=== PATIENT | female | born 1990 | race Caucasian/White ===

== ENCOUNTER → 2019-03-23 11:02 | Outpatient (CLI) | payer OTHER, MEDICAID, SELFPAY ==
--- NOTE | 2019-03-23 11:04 | DI.RAD.S_ITS ---
PROCEDURE: XR WRIST RT MIN 3V INDICATIONS: Pain in hand/wrist after fall TECHNIQUE: 4 views of the wrist were acquired. COMPARISON: None. FINDINGS: Bones: No fractures or dislocations. No suspicious bony lesions. Scaphoid view: Scapholunate interval is maintained. No acute fracture is noted in the scaphoid. Soft tissues: No suspicious soft tissue calcifications. IMPRESSION: Right wrist without acute fracture or dislocation. If there is persistent clinical concern for a radiographically occult fracture given mechanism of injury, consider repeat imaging in 10-14 days with immobilization as clinically indicated. Dictated by: Kaiden Lopez M.D. on 03/23/2019 at 12:01 Approved by: Kaiden Lopez M.D. on 03/23/2019 at 12:05
--- NOTE | 2019-03-23 11:04 | DI.RAD.S_ITS ---
PROCEDURE: XR HAND RT MIN 3V INDICATIONS: Pain in hand/wrist after fall TECHNIQUE: 3 views of the hand(s) acquired. COMPARISON: None. FINDINGS: Bones: Subtle cortical irregularity without displacement involving the radial side at the base of the right fifth finger distal phalanx without significant overlying soft tissue swelling. This may be related to overlapping structures. However, this appears more prominent than the other visualized phalanges. No other fractures or dislocations. Carpal bones are normally aligned. No suspicious bony lesions. Soft tissues: No suspicious soft tissue calcifications. IMPRESSION: Subtle cortical irregularity involving the radial side of the base of the right fifth finger distal phalanx. No significant overlying soft tissue swelling. This may represent a nondisplaced fracture if there is focal tenderness in this region. Otherwise, no acute fracture is identified in the right hand. Dictated by: Kaiden Lopez M.D. on 03/23/2019 at 12:05 Approved by: Kaiden Lopez M.D. on 03/23/2019 at 12:09
== END ==
PROVIDERS: PCP Family Medicine; Visit Provider Physician Assistant
DX: M79.641 Pain in right hand (principal); M25.531 Pain in right wrist
CPT/HCPCS: 73110; 73130

== ENCOUNTER 2019-12-25 10:37 | Emergency (ER) | payer OTHER, MEDICAID, SELFPAY ==
[2019-12-25 10:54] VITALS: BP 126/76; PULSE 76; RESP 16; TEMP 36.3; O2SAT 100; BMI 35.2
--- NOTE | 2019-12-25 12:47 | DI.RAD.S_ITS ---
PROCEDURE: XR THORACIC SPINE 3V INDICATIONS: non-traumatic neckand upper back pain for 4 weeks TECHNIQUE: 3 views of the thoracic spine were acquired. COMPARISON: None. FINDINGS: Bones: On the lateral views, the cervicothoracic junction is adequately visualized and the alignment through this region is within normal limits. The vertebral body heights are within normal limits throughout the thoracic spine without evidence to suggest acute compression fracture. The bone mineralization is within normal limits. No significant degenerative changes of the thoracic spine are evident. Soft tissues: The imaged overlying soft tissues of the chest are within normal limits. IMPRESSION: Unremarkable thoracic spine radiographs. No fractures. Dictated by: Fantasma Reyes M.D. on 12/25/2019 at 12:29 Approved by: Fantasma Reyes M.D. on 12/25/2019 at 12:29
--- NOTE | 2019-12-25 12:47 | DI.RAD.S_ITS ---
PROCEDURE: XR CERVICAL SPINE 2V OR 3V INDICATIONS: non-traumatic neckand upper back pain for 4 weeks TECHNIQUE: 3 view(s) of the cervical spine were acquired. COMPARISON: None. FINDINGS: Bones: On the lateral view, the cervicothoracic junction is adequately visualized and the alignment through this region is within normal limits. The vertebral body heights and prevertebral soft tissues are within normal limits throughout the cervical spine without evidence to suggest acute compression fracture. The bone mineralization is within normal limits. Straightening of the normal cervical lordosis is present. No significant degenerative changes of the cervical spine are identified. Soft tissues: No prevertebral soft tissue swelling. The imaged overlying soft tissues of the neck are within normal limits. IMPRESSION: 1. No displaced fractures. 2. Cervical straightening is suggestive of muscle spasm. Please correlate clinically. Dictated by: Fantasma Reyes M.D. on 12/25/2019 at 12:27 Approved by: Fantasma Reyes M.D. on 12/25/2019 at 12:28
[2019-12-25] MEDS: CYCLOBENZAPRINE 10 MG TABLET PO (13:21)
[2019-12-25] MEDS: LIDOCAINE PATCH 1 EACH ADH..PATCH 2 EACH TOP (13:21)
[2019-12-25] MEDS: ACETAMINOPHEN 325 MG TABLET 650 MG PO (13:22)
[2019-12-25] MEDS: KETOROLAC 60 MG/2 ML VIAL 30 MG IM (13:23)
--- NOTE | 2019-12-26 02:13 | ED_ITS ---
HPI - Back Pain/Injury <DOMINIC ManciniP - Last Filed: 12/26/19 02:25> General Chief Complaint: Back Pain/Injury Stated Complaint: upper back/neck pain Time Seen by Provider: 12/25/19 11:11 Source: patient Mode of arrival: Ambulatory Limitations: no limitations History of Present Illness HPI Narrative: This is a 29-year-old female, former smoker, who presents to ED with significant other with chief complain of posterior neck and upper back pain for 4 weeks. Patient denies injury or trauma prior to her symptoms. Patient reports discomfort is causing her to have headache. Patient states the discomfort feels as throbbing and feels swollen. Patient denies relieving or aggravating factors. Patient has been using ibuprofen 600 mg as needed and use warm pack. Patient also was evaluated twice in [facility] ER and [facility] ER and was treated with steroids which did not improve her symptoms and other medications that she cannot recall. LMP started today. Patient denies tingling, numbness, weakness to upper extremities. Patient denies any recent manipulation. Related Data Previous Rx's Medication Instructions Recorded cyclobenzaprine 10 mg PO BEDTIME PRN #10 tab 12/25/19 lidocaine 2 patch TOP DAILY #15 each 12/25/19 Allergies Allergy/AdvReac Type Severity Reaction Status Date / Time No Known Drug Allergies Allergy Verified 03/23/19 11:34 Review of Systems <Christiano MccarthyTheodoreDOMINIC HerringP - Last Filed: 12/26/19 02:25> Review of Systems Narrative: General: Denies fever, chills, fatigue, malaise, sweats. HEENT: Denies sinus pain, ear pain, sore throat, difficulty swallowing, dizziness. Respiratory: Denies dyspnea, cough, wheezing, hemoptysis, sputum. Cardiovascular: Denies chest pain, palpitations, orthopnea, edema. Gastrointestinal: Denies nausea, vomiting, abdominal pain, diarrhea, constipation, melena. : Denies dysuria, frequency, incontinence, hematuria, urinary retention. Musculoskeletal: See HPI Skin: Denies rash, skin lesions, or other. Neurologic: Denies weakness, (+) headache, numbness, change in speech, confusion, seizures, incoordination. Psychiatric: No concerning psychosocial issues. 12-point review of systems is negative except for those stated above. Patient History <LILIANA Mancini - Last Filed: 12/26/19 02:25> Surgical History History of ovarian cystectomy (Acute) Social History Smoking Status: Former smoker Smoking Status: Former smoker alcohol intake frequency: 0-2 drinks per day Exam <LILIANA Mancini - Last Filed: 12/26/19 02:25> Narrative Exam Narrative: GEN: Alert, oriented x 3, well appearing and nourished, and in no acute distress. Head: Normal cephalic, atraumatic. No scalp or temporal tenderness, palpable mass or rash. EYES: Pupils are equal, round, and reactive to light and accommodation. Extraocular muscles are intact bilaterally. There is no subconjunctival hemorrhage, exudate and sclera non-icteric. ENT: Bilateral auditory canals and tympanic membranes clear. Hearing grossly intact. Nose without bleeding, purulent discharge or deviation. Facial sinuses nontender to palpate. Mucous membrane moist, no mucosal lesion. Throat without erythema, tonsillar hypertrophy or exudate. Uvula in midline, airway patent. Neck: Trachea in midline. No JVD, non-tender without lymphadenopathy. No masses or thyroid megaly. Supple, non-tender and no meningeal signs. CARDIAC: Normal regular rate and rhythm without murmurs, gallops, or rubs. No chest wall tenderness. No peripheral edema, cyanosis or pallor. Capillary refill is less than 2 seconds. RESPIRATORY: Lungs are clear to auscultate bilaterally. No cough, wheezes, rales, or rhonchi. No stridor, respiratory distress, increase work of b reathing, or accessary muscle used. ABD: Abdomen soft, nontender and non-distended. No guarding or rebound tenderness to palpate. Bowel sounds are normal in all 4 quadrants. There is no palpable masses or organomegaly. EXT: Full painless ROM of all extremities with no loss of sensation, strength, effusion or edema. SKIN: Warm, dry, normal color for patient. No erythema, lesions or rash over visible areas. NEUROLOGICAL: Alert and oriented to place, time and person. Sensation and motor function intact bilaterally. No facial droops, dysphasia. PSYCHIATRIC: Good judgement and reason, without hallucinations, abnormal affect or abnormal behaviors during the examination. Initial Vital Signs Initial Vital Signs: Vital Signs Temperature 97.3 F L 12/25/19 10:54 Pulse Rate 76 12/25/19 10:54 Respiratory Rate 16 12/25/19 10:54 Blood Pressure 126/76 12/25/19 10:54 Pulse Oximetry 100 12/25/19 10:54 Back/Spine/Pelvis Cervical Spine: cervical ROM normal, cervical muscular tenderness, pain with cervical ROM, cervical spasm, cervical spinal tenderness and No step off deformity Thoracic/Lumbar Spine: thoracic and lumbar spine normal to inspection, paraspinal tenderness and thoracic spinal tenderness <Beau Roldan MD - Last Filed: 12/27/19 21:20> Initial Vital Signs Initial Vital Signs: Vital Signs Temperature 97.3 F L 12/25/19 10:54 Pulse Rate 76 12/25/19 10:54 Respiratory Rate 16 12/25/19 10:54 Blood Pressure 126/76 12/25/19 10:54 Pulse Oximetry 100 12/25/19 10:54 Scores <LILIANA Mancini - Last Filed: 12/26/19 02:25> GCS Aurora coma scale eye opening: Spontaneous Darrius coma scale verbal response: Orientated Aurora coma scale motor response: Obey commands Darrius coma scale total score: 15 Course <LILIANA Mancini - Last Filed: 12/26/19 02:25> Orders Ordered: Discontinued Medications Acetaminophen (Tylenol) 650 mg PO NOW ONE Stop: 12/25/19 12:48 Last Admin: 12/25/19 13:22 Dose: 650 mg Documented by: DAVID Cyclobenzaprine HCl (Flexeril) 10 mg PO NOW ONE Stop: 12/25/19 12:48 Last Admin: 12/25/19 13:21 Dose: 10 mg Documented by: DAVID Ketorolac Tromethamine (Toradol) 30 mg IM NOW ONE Stop: 12/25/19 12:48 Last Admin: 12/25/19 13:23 Dose: 30 mg Documented by: DAVID Lidocaine (Lidoderm) 2 each TOP NOW ONE Stop: 12/25/19 12:48 Last Admin: 12/25/19 13:21 Dose: 2 each Documented by: DAVID <Beau Roldan MD - Last Filed: 12/27/19 21:20> Orders Ordered: Discontinued Medications Acetaminophen (Tylenol) 650 mg PO NOW ONE Stop: 12/25/19 12:48 Last Admin: 12/25/19 13:22 Dose: 650 mg Documented by: DAVID Cyclobenzaprine HCl (Flexeril) 10 mg PO NOW ONE Stop: 12/25/19 12:48 Last Admin: 12/25/19 13:21 Dose: 10 mg Documented by: DAVID Ketorolac Tromethamine (Toradol) 30 mg IM NOW ONE Stop: 12/25/19 12:48 Last Admin: 12/25/19 13:23 Dose: 30 mg Documented by: DAVID Lidocaine (Lidoderm) 2 each TOP NOW ONE Stop: 12/25/19 12:48 Last Admin: 12/25/19 13:21 Dose: 2 each Documented by: DAVID MDM - Back Pain/Injury <LILIANA Mancini - Last Filed: 12/26/19 02:25> Differential Diagnosis Differential diagnosis: Likely thoracic back pain and other (Cervical strain) Medical Records Attestation: I reviewed the patient's medical records. Lab Data Attestation: I reviewed the patient's lab results. Imaging Data XR-Thoracic spine: Radiologist's Impression: [place] [address] XRay Report Signed Patient: Aleida Salazar#: [id number] : 1990Acct:[id number] Age/Sex: / FDate of Service: 12/25/19 Loc: ED Accession Number: [id number] Procedure: XR thoracic spine 3V Ordering Provider: hCristiano Saenz PROCEDURE: XR THORACIC SPINE 3V INDICATIONS: non-traumatic neckand upper back pain for 4 weeks TECHNIQUE: 3 views of the thoracic spine were acquired. COMPARISON: None. FINDINGS: Bones: On the lateral views, the cervicothoracic junction is adequately visualized and the alignment through this region is within normal limits. The vertebral body heights are within normal limits throughout the thoracic spine without evidence to suggest acute compression fracture. The bone mineralization is within normal limits. No significant degenerative changes of the thoracic spine are evident. Soft tissues: The imaged overlying soft tissues of the chest are within normal limits. IMPRESSION: Unremarkable thoracic spine radiographs. No fractures. Dictated by: Fantasma Reyes M.D. on 12/25/2019 at 12:29 Approved by: Fantasma Reyes M.D. on 12/25/2019 at 12:29 XR-Cervical spine: Radiologist's Impression: [address] [address] XRay Report Signed Patient: Aleida Salazar#: [id number] : 1990Acct:[id number] Age/Sex: FDate of Service: 12/25/19 Loc: ED Accession Number: [id number] Procedure: XR cervical spine 2V or 3V Ordering Provider: Christiano Saenz PROCEDURE: XR CERVICAL SPINE 2V OR 3V INDICATIONS: non-traumatic neckand upper back pain for 4 weeks TECHNIQUE: 3 view(s) of the cervical spine were acquired. COMPARISON: None. FINDINGS: Bones: On the lateral view, the cervicothoracic junction is adequately visualized and the alignment through this region is within normal limits. The vertebral body heights and prevertebral soft tissues are within normal limits throughout the cervical spine without evidence to suggest acute compression fracture. The bone mineralization is within normal limits. Straightening of the normal cervical lordosis is present. No significant degenerative changes of the cervical spine are identified. Soft tissues: No prevertebral soft tissue swelling. The imaged overlying soft tissues of the neck are within normal limits. IMPRESSION: 1. No displaced fractures. 2. Cervical straightening is suggestive of muscle spasm. Please correlate clinically. Dictated by: Fantasma Reyes M.D. on 12/25/2019 at 12:27 Approved by: Fantasma Reyes M.D. on 12/25/2019 at 12:28 [facility] Narrative Medical decision making narrative: X-ray test on thoracic spine without acute findings. C-spine x-ray shows no displaced fracture but cervical straightening is suggestive of muscle spasm. Patient complain of paraspinal and spinous tenderness to palpate in cervical and upper thoracic region. Patient was medicated with Tylenol, IM Toradol, lidocaine patch and Flexeril which helped her with her symptoms. Physical exam does not exhibited neuro sensory deficit. Patient advised to follow-up with her primary care physician to talk about a referral to physical therapist and further imaging test if her symptoms persists. Advised to take [id number] Tylenol and or Motrin as needed for discomfort and discharged to home with Flexeril and lidocaine patch as needed. Advised to use warm pack to relax the muscle and gentle stretching. Patient verbalized understanding and agrees with treatment plan. Discharge Plan Departure Patient Disposition: Home Clinical Impression: Thoracic back pain Qualifiers: Chronicity: unspecified Back pain laterality: midline Qualified Code(s): M54.6 - Pain in thoracic spine Cervical muscle strain Qualifiers: Encounter type: initial encounter Qualified Code(s): S16.1XXA - Strain of muscle, fascia and tendon at neck level, initial encounter Discharge Date/Time: 12/25/19 16:06 Activity Restrictions/Additional Instructions: You have been diagnosed with [cervical and upper thoracic back strain. There is no fracture was noted in x-ray today. You were medicated with Flexeril, Tylenol,Toradol, and Lidocaine patch which helped your discomfort.]. What to do: *Take your medications as directed. Please continue to take Flexeril for muscle relaxant at night. This may cause drowsiness so please take precaution. Lidocaine stays on for 12 and off for 12 hours. This medication has been transmitted to [facility] in [place]. Please continue to take [id number] Tylenol 650 mg 4 times a day and ibuprofen 400-600 mg 3 times a day with food as needed for discomfort. Can use warm pack for muscle relaxant as well *Follow up with your primary care provider in 2-3 days, call for an appointment. Let them know you were seen in the ED and that we asked you to be seen in follow up. You may want to discuss with her provider for a referral to physical therapy. *Return to ED if you have any new, worsening, or concerning symptoms, such as [chest pain, breathing difficulty, unable to tolerate fluids, or any acute concerns]. Prescriptions: New cyclobenzaprine 10 mg tablet 10 mg PO BEDTIME PRN (Reason: muscle spasm) Qty: 10 RF: 0 lidocaine 5 % adhesive patch,medicated 2 patch TOP DAILY Qty: 15 RF: 0 Referrals: Francisca Dunbar MD [Primary Care Provider] -
== END 2019-12-25 16:06 | disposition home or self-care (01) ==
PROVIDERS: Emergency Provider Nurse Practitioner Family; PCP Family Medicine
DX: M54.6 Pain in thoracic spine (principal); S16.1XXA Strain of muscle, fascia and tendon at neck level, initial encounter
CPT/HCPCS: 72040; 72072; 96372; 99283; 99284; J1885